=== PATIENT | female | born 1990 | race Hispanic/Latino ===

== ENCOUNTER 2023-12-09 04:32 | Emergency (ER) | payer OTHER ==
[~2023-12-09] VITALS: Ht 152.4 cm; Wt 72.6 kg
[2023-12-09 04:39] VITALS: RESP 20; TEMP 98.6
[2023-12-09] MEDS: KETOROLAC TROMETHAMINE 30 MG/ML VIAL IV STA (04:50)
[2023-12-09] MEDS: SODIUM CHLORIDE 0.9% 1000ML 1,000 ML IV STA (04:50)
[2023-12-09] MEDS: ONDANSETRON HCL INJ 2MG/ML 2ML 2 MG/ML VIAL IV STA (04:50)
[2023-12-09 05:03] LABS: BASOPHILS % 0.3 % (0.0-1.0); EOSINOPHILS # (AUTO) 0.2 (0.0-0.4); EOSINOPHILS % 1.6 % (0.0-6.0); HEMATOCRIT 37.4 % (34.2-44.1); HEMOGLOBIN 11.9 g/dL (12.0-16.0); LYMPHOCYTES # (AUTO) 3.2 (1.0-3.2); LYMPHOCYTES % 34.5 % (18.0-39.1); MEAN CORPUSCULAR HGB CONC 31.8 g/dL (31-35); MONOCYTES # (AUTO) 0.7 (0.2-0.8); NEUTROPHILS # (AUTO) 5.3 (2.1-6.9); NEUTROPHILS % 56.4 % (38.7-80.0); PLATELET COUNT 324 x10e3/uL (140-360); RED CELL DISTRIBUTION WIDTH 13.1 % (11.7-14.4); WHITE BLOOD COUNT 9.31 x10e3/uL (4.8-10.8)
[2023-12-09 05:13] LABS: BILIRUBIN,URINE NEGATIVE (NEGATIVE); CLARITY,URINE CLEAR (CLEAR); COLOR,URINE YELLOW (YELLOW); GLUCOSE, URINE NEGATIVE (NEGATIVE); KETONES,URINE NEGATIVE (NEGATIVE); LEUKOCYTE ESTERASE ,URINE NEGATIVE (NEGATIVE); NITRITE,URINE NEGATIVE (NEGATIVE); PH,URINE 6 (5 - 7); PROTEIN,URINE DIPSTICK TRACE (NEGATIVE); URINE UROBILINOGEN 1 mg/dL (0.2 - 1)
[2023-12-09 05:14] LABS: PREGNANCY TEST, URINE NEGATIVE (NEGATIVE)
[2023-12-09 05:17] LABS: ALBUMIN 3.7 g/dL (3.5-5.0); ALBUMIN/GLOBULIN RATIO 0.9 (0.8-2.0); ANION GAP 14.8 mmol/L (8-16); BILIRUBIN,TOTAL 0.5 mg/dL (0.2-1.2); CALCIUM 8.9 mg/dL (8.4-10.2); CREATININE, SERUM 0.74 mg/dL (0.57-1.11); POTASSIUM 3.8 mmol/L (3.5-5.1); TOTAL PROTEIN 7.7 g/dL (6.5-8.1)
[2023-12-09 05:28] LABS: BACTERIA,URINE MANY /HPF; EPITHELIAL CELLS,URINE MODERATE /LPF; RBC,URINE 0-5 /HPF (0-5)
[2023-12-09 06:26] VITALS: PULSE 80
[2023-12-09] MEDS ORDERED: DICYCLOMINE HCL20 MG PO (06:35)
[2023-12-09] MEDS ORDERED: ONDANSETRON ODT4 MG PO (06:35)
[2023-12-09] MEDS ORDERED: CEFDINIR300 MG PO (06:35)
[2023-12-09 06:40] VITALS: BP 123/76; O2SAT 100
== END 2023-12-09 06:43 | disposition home or self-care (01) ==
LOC: ER 04:36
DX: R10.32 Left lower quadrant pain (principal); N39.0 Urinary tract infection, site not specified; R11.0 Nausea; E28.2 Polycystic ovarian syndrome
CPT/HCPCS: 36415; 74176; 80053; 81001; 81025; 83690; 85025; 99284; J1885; J2405; J7030